=== PATIENT | male | born 1990 | race Caucasian/White ===

== ENCOUNTER 2024-02-21 20:00 | Emergency (ER) | payer MEDICAID ==
[~2024-02-21] VITALS: Ht 182.9 cm; Wt 84.2 kg
[2024-02-21 20:10] VITALS: BP 122/82; PULSE 58; RESP 18
[2024-02-21 21:25] VITALS: O2SAT 97
--- NOTE | 2024-02-21 21:38 | ED.PDOC ---
HPI (NEURO) HPI Comments This is a 33-year-old male presents to the ED status post head injury while at work patient states he was pulling a cord out of a conveyor belt when the belt snapped and hit him in the forehead above his right eyebrow. Patient states negative LOC. denies pain at this time, denies blurred vision dizziness neuro focal deficits, gait disturbances slurred speech or any concerning symptoms. Chief Complaint: Facial Injury Time Seen by MD: 20:27 Primary Care Provider: NONE Reviewed Notes: Nurses Notes, Medications, Allergies Information Source: Patient Mode of Arrival: Ambulatory Past Medical History PAST MEDICAL HISTORY: Denies Surgical History: Denies all surgeries Family History Family History: Reviewed,noncontributory to illness, Unknown Social History Smoker: Cigarettes Alcohol: Denies ETOH Use Drugs: Denies Drug Use Lives In: Home Constitutional: denies: chills, diaphoresis, fatigue, fever, malaise, sweats, weakness, others EENTM: denies: blurred vision, double vision, ear bleeding, ear discharge, ear drainage, ear pain, ear ringing, eye pain, eye redness, hearing loss, mouth pain, mouth swelling, nasal discharge, nose bleeding, nose congestion, nose pain, photophobia, tearing, throat pain, throat swelling, voice changes, others Respiratory: denies: cough, hemoptysis, orthopnea, SOB at rest, shortness of breath, SOB with excertion, stridor, wheezing, others Cardiovascular: denies: chest pain, dizzy spells, diaphoresis, Dyspnea on exertion, edema, irregular heart beat, left arm pain, lightheadedness, palpitations, PND, syncope, others Gastrointestinal: denies: abdomen distended, abdominal pain, blood streaked bowels, constipated, diarrhea, dysphagia, difficulty swallowing, hematemesis, melena, nausea, poor appetite, poor fluid intake, rectal bleeding, rectal pain, vomiting, others Genitourinary: denies: burning, dysuria, flank pain, frequency, hematuria, incontinence, penile discharge, penile sore, pain, testicle pain, testicle swelling, urgency, others Neurological: denies: dizziness, fainting, headache, left sided numbness, left sided weakness, numbness, paresthesia, pre-existing deficit, right sided numbness, right sided weakness, seizure, speech problems, tingling, tremors, weakness, others Musculoskeletal: denies: back pain, gout, joint pain, joint swelling, muscle pain, muscle stiffness, neck pain, others Integumetry: reports: wounds (Abrasion and lump right side forehead); denies: bruises, change in color, change in hair/nails, dryness, laceration, lesions, lumps, rash, others Allergic/Immunocompromised: denies: Difficulty Healing, Frequent Infections, Hives, Itching, others Endocrine: denies: excessive hunger, excessive sweating, excessive thirst, excessive urination, flushing, intolerance to cold, intolerance to heat, unexplained weight gain, unexplained weight loss, others Psychiatric: denies: anxiety, bipolar disorder, depression, hopeless, panic disorder, schizophrenia, sleepless, suicidal, others Physical Exam General Appearance: No Apparent Distress, Normal HEENT: Head ([place] size hematoma to right side forehead above right eye with superficial abrasion no noted bleeding or drainage no noted ecchymosis or crepitus on palpation.), Pharynx Normal Neck: Full Range of Motion, Non-Tender Respiratory: Lungs Clear, No Respiratory Distress, Normal Breath Sounds Cardiovascular: No Murmur, Normal Peripheral Pulses, Regular Rate/Rhythm Breast Exam: Deferred Gastrointestinal: Non Tender, Soft Genitalia: Deferred Pelvic: Deferred Rectal: Deferred Extremities: Normal capillary refill, Normal inspection, Normal range of motion, Non-tender, No pedal edema Musculoskeletal : Apperance: Normal Neurologic: Alert, inoculator II-XII nml as Tested, No Motor Deficits, Normal Affect, Normal Mood, No Sensory Deficits Cerebellar Function: Normal Reflexes: Normal Skin: Dry, Normal Color, Warm Lymphatic: No Adenopathy Was a procedure done? Was a procedure done?: No Differential Diagnosis (SZ) Seizure: Closed Head Injury X-Ray, Labs, Meds, VS Vital Signs Date Time Temp Pulse Resp B/P (MAP) Pulse Ox O2 Delivery O2 Flow Rate FiO2 02/21/24 20:10 99.0 58 18 122/82 (95) 97 X-Ray, Labs, Meds, VS Comment Superficial abrasion to forehead with nickel size hematoma healing. Patient states happened at work refused to fill out worker's comp paperwork. Advised patient to follow up with occupational health before returning to work. Advised patient to monitor self for the next 24-48 hours any change in mentation intractable vomiting, dizziness vision changes slurred speech or any neuro focal deficits return to the ER call 911 advised to use ice to his forehead [id number] Tylenol or Motrin as needed for pain per labeled dosing instructions advised him to rest increase p.o. fluids with electrolytes. Light diet for the next 2 days. Patient indicated understanding and agrees with discharge plan of care verbal instructions given patient left without written instructions. Time of 1ST Reevaluation: 21:33 Reevaluation 1ST: Improved Patient Education/Counseling: Diagnosis, Treatment, Prognosis, Need For Follow Up Family Education/Counseling: No Family Present Departure 1 Departure Time of Disposition: 21:32 Impression: Primary Impression: Traumatic hematoma of forehead Qualified Codes: S00.83XA - Contusion of other part of head, initial encounter Disposition: HOME / SELF CARE / HOMELESS Condition: Stable Discharged With: Self Critical Care Note Critical Care Time?: No Stability Stability form required: TERESA Jesus Feb 21, 2024 21:38
== END 2024-02-21 21:59 | disposition home or self-care (01) ==
LOC: ER 20:00
DX: S00.83XA Contusion of other part of head, initial encounter (principal); F17.210 Nicotine dependence, cigarettes, uncomplicated; W22.8XXA Striking against or struck by other objects, initial encounter; Y93.89 Activity, other specified; Y92.89 Other specified places as the place of occurrence of the external cause; Y99.8 Other external cause status